=== PATIENT | male | born 1960 | race Caucasian/White ===

== ENCOUNTER 2017-04-19 08:45 | Outpatient (CLI) | payer OTHER ==
[~2017-04-19 08:45] MED LIST: PREVACID30 MG/PACK PO
== END 2017-04-19 08:58 | disposition home or self-care (01) ==
LOC: LAB 08:45
DX: D68.61 Antiphospholipid syndrome (principal)

== ENCOUNTER → 2017-06-25 | Outpatient (CLI) | payer OTHER | END | disposition home or self-care (01) | LOC: LAB 13:25 | DX: D63.8 Anemia in other chronic diseases classified elsewhere (principal); N40.0 Benign prostatic hyperplasia without lower urinary tract symptoms; N30.00 Acute cystitis without hematuria; Z79.01 Long term (current) use of anticoagulants ==

== ENCOUNTER → 2017-08-11 | Outpatient (CLI) | payer OTHER | END | disposition home or self-care (01) | LOC: LAB 13:50 | DX: N40.0 Benign prostatic hyperplasia without lower urinary tract symptoms (principal); N30.00 Acute cystitis without hematuria; R97.20 Elevated prostate specific antigen [PSA]; D63.8 Anemia in other chronic diseases classified elsewhere; Z79.01 Long term (current) use of anticoagulants ==

== ENCOUNTER 2017-09-19 11:07 | Outpatient (CLI) | payer OTHER | END 2017-09-19 17:00 | disposition home or self-care (01) | LOC: RAD 11:07 | DX: M25.532 Pain in left wrist (principal) ==

== ENCOUNTER 2018-03-23 13:58 | Outpatient (CLI) | payer OTHER | END 2018-03-23 14:55 | disposition home or self-care (01) | LOC: LAB 13:58 | DX: Z79.01 Long term (current) use of anticoagulants (principal); D64.89 Other specified anemias ==

== ENCOUNTER 2018-06-10 15:07 | Outpatient (CLI) | payer OTHER | END 2018-06-10 15:16 | disposition home or self-care (01) | LOC: LAB 15:07 | DX: D64.89 Other specified anemias (principal); Z79.01 Long term (current) use of anticoagulants ==

== ENCOUNTER 2018-08-19 10:23 | Outpatient (CLI) | payer OTHER | END 2018-08-19 15:23 | disposition home or self-care (01) | LOC: LAB 10:23 | DX: D64.89 Other specified anemias (principal); Z79.01 Long term (current) use of anticoagulants ==

== ENCOUNTER 2018-11-16 14:09 | Outpatient (CLI) | payer OTHER | END 2018-11-16 14:30 | disposition home or self-care (01) | LOC: LAB 14:09 | DX: D64.89 Other specified anemias (principal); Z79.01 Long term (current) use of anticoagulants ==

== ENCOUNTER → 2019-02-18 12:38 | Outpatient (CLI) | payer OTHER | END | disposition home or self-care (01) | LOC: LAB 12:38 | DX: N20.0 Calculus of kidney (principal) ==

== ENCOUNTER 2019-02-25 09:20 | Outpatient (CLI) | payer OTHER | END 2019-02-25 09:24 | disposition home or self-care (01) | LOC: MRI 09:20 | DX: I81 Portal vein thrombosis (principal); K55.1 Chronic vascular disorders of intestine | CPT/HCPCS: 72196; 74182 ==

== ENCOUNTER → 2019-03-22 | Outpatient (CLI) | payer OTHER | END | disposition home or self-care (01) | LOC: LAB 13:40 | DX: R97.0 Elevated carcinoembryonic antigen [CEA] (principal) ==

== ENCOUNTER 2019-05-03 13:41 | Outpatient (CLI) | payer OTHER | END 2019-05-03 13:51 | disposition home or self-care (01) | LOC: LAB 13:41 | DX: D64.89 Other specified anemias (principal); Z79.01 Long term (current) use of anticoagulants ==

== ENCOUNTER → 2019-09-05 10:07 | Outpatient (CLI) | payer OTHER | END | disposition home or self-care (01) | LOC: LAB 10:07 | PROVIDERS: ATTEND Internal Medicine Cardiovascular Disease | DX: N39.0 Urinary tract infection, site not specified (principal); R10.84 Generalized abdominal pain; R05 Cough; Z20.828 Contact with and (suspected) exposure to other viral communicable diseases; R50.9 Fever, unspecified; R06.2 Wheezing ==

== ENCOUNTER 2019-09-08 10:12 | Outpatient (CLI) | payer OTHER | END 2019-09-08 15:00 | disposition home or self-care (01) | LOC: LAB 10:12 | PROVIDERS: ATTEND Internal Medicine Cardiovascular Disease | DX: R10.84 Generalized abdominal pain (principal); N39.0 Urinary tract infection, site not specified; D64.89 Other specified anemias; Z79.01 Long term (current) use of anticoagulants ==

== ENCOUNTER 2019-10-03 16:02 | Inpatient (IN) | payer OTHER ==
[~2019-10-03] VITALS: Ht 167.6 cm; Wt 73.9 kg
[~2019-10-03 16:02] MED LIST changes: -COUMADIN2 MG PO; -TAMS0.4C PO
[2019-10-04] MEDS ORDERED: TAMS0.4C PO (13:14)
[2019-10-04] MEDS ORDERED: COUMADIN2 MG PO (13:15)
== END 2019-10-14 08:17 | disposition home or self-care (01) | DRG 445 ==
LOC: MEDJ 16:02
PROVIDERS: ADMIT Internal Medicine Cardiovascular Disease; ATTEND Internal Medicine Cardiovascular Disease
PROC: 0FJB8ZZ Inspection of Hepatobiliary Duct, Via Natural or Artificial Opening Endoscopic (ICD-10-PCS; principal; 2019-10-13)
DX: K83.1 Obstruction of bile duct (principal); D68.59 Other primary thrombophilia; K76.6 Portal hypertension; I86.8 Varicose veins of other specified sites; Z20.828 Contact with and (suspected) exposure to other viral communicable diseases

== ENCOUNTER → 2019-10-03 | Outpatient (CLI) | payer OTHER ==
[~2019-10-03] MED LIST changes: +COUMADIN2 MG PO; +TAMS0.4C PO
== END | disposition home or self-care (01) ==
LOC: MRI 14:10
PROVIDERS: ATTEND Internal Medicine Hematology & Oncology
DX: K83.1 Obstruction of bile duct (principal); K76.89 Other specified diseases of liver; I82.890 Acute embolism and thrombosis of other specified veins
CPT/HCPCS: 74181

== ENCOUNTER 2021-04-27 08:00 | Outpatient (CLI) | payer OTHER ==
[~2021-04-27 08:00] MED LIST changes: +COUMADIN2 MG PO; +TAMS0.4C PO
== END 2021-04-27 08:30 | disposition home or self-care (01) ==
LOC: PPH VACUNA 08:00
PROVIDERS: ATTEND Emergency Medicine Pediatric Emergency Medicine
DX: Z23 Encounter for immunization (principal)

== ENCOUNTER 2021-06-01 06:08 | Outpatient (CLI) | payer OTHER | END 2021-06-01 09:15 | disposition home or self-care (01) | LOC: SONOGRAMA 06:08 | PROVIDERS: ATTEND Internal Medicine Cardiovascular Disease | DX: R10.9 Unspecified abdominal pain (principal) ==

== ENCOUNTER 2021-06-01 06:39 | Outpatient (CLI) | payer OTHER | END 2021-06-01 06:50 | disposition home or self-care (01) | LOC: LAB 06:39 | PROVIDERS: ATTEND Internal Medicine Cardiovascular Disease | DX: E03.9 Hypothyroidism, unspecified (principal); I10 Essential (primary) hypertension; E11.9 Type 2 diabetes mellitus without complications; E78.2 Mixed hyperlipidemia; N40.0 Benign prostatic hyperplasia without lower urinary tract symptoms; D68.9 Coagulation defect, unspecified; E55.9 Vitamin D deficiency, unspecified ==